=== PATIENT | female | born 1985 | race Caucasian/White ===

== ENCOUNTER 2020-11-04 12:26 | Outpatient (CLI) | payer OTHER, SELFPAY ==
--- NOTE | ~2020-11-04 | MR_ITS ---
EXAMINATION: MR wrist LT w con DATE: 11/04/2020 14:18 INDICATION: Left wrist sprain TECHNIQUE: Magnetic resonance imaging (MRI) of the left wrist was performed without intravenous contr ast. Sequences performed include axial, sagittal and coronal T1-weighted FS FSE and T2-weighted FS FS E and coronal FGRE 3D. COMPARISON: 11/04/2020 FINDINGS: Intrinsic ligaments: The scapholunate and lunotriquetral ligaments are normal. Triangular fibrocartilage complex (TFCC): The triangular fibrocartilage including its foveal and styloid attachments are normal. There is howev er extension of contrast into the distal radioulnar joint which was not seen initially with fluorosco py during the joint injection including with radial and ulnar deviation of the wrist. This appears to extend through a small tear involving the dorsal radioulnar ligament. The ulnar collateral ligament, ulnotriquetral ligament and meniscal homologue are normal. The extensor carpi ulnaris tendon sheath is normal. Extensor wrist: Extensor tendons of the wrist are normal. No tenosynovitis. Flexor wrist: The flexor tendons of the wrist are normal. No abnormality in the carpal tunnel with normal median n erve. Guyon's canal: Guyon's canal including the ulnar nerve and artery are normal. Bones/other: There is a healing fracture at the right scaphoid waist with subtle lucency evident extending across the bone during fluoroscopy and with minimal increased signal of less than fluid intensity and with n o contrast enhancement extending along the fracture plane. There is approximately 1 mm step-off along the midcarpal joint articular surface. Otherwise normal marrow signal. No evident sclerosis at the p roximal pole on fluoroscopy or increased fluid signal to suggest osteonecrosis. Joint spaces are norm al sites in the intra-articular extension of the scaphoid waist fracture.. No focal cartilage defects appreciated. IMPRESSION: 1. Healing essentially nondisplaced scaphoid waist fracture with 1 mm step-off at the articular surfa ce of the midcarpal joint. 2. Small tear of the dorsal radioulnar ligament allowing delayed extension of contrast from the wrist joint into the distal radioulnar joint. Reviewed, dictated and finalized at location A. IMPRESSION: 1. Healing essentially nondisplaced scaphoid waist fracture with 1 mm step-off at the articular surface of the midcarpal joint. 2. Small tear of the dorsal radioulnar ligament allowing delayed extension of c ontrast from the wrist joint into the distal radioulnar joint.
--- NOTE | ~2020-11-04 | XR_ITS ---
EXAMINATION: XR fl inj wrist LT for MR/CT DATE: 11/04/2020 13:36 INDICATION: Left wrist sprain TECHNIQUE: A time-out was performed to verify the patient's name, date of , and procedure to b e performed. The procedure including the risks, benefits, and alternatives was discussed with the pat ient. Risks discussed included bleeding and infection. The patient understood the risks and agreed to proceed. The skin overlying the radioscaphoid articulation of the left wrist joint was prepped and draped in usual sterile fashion. Anesthetic was administered with 1% lidocaine subcutaneously. A 25 G needle was advanced under fluoroscopic guidance into the joint. Injection of 1 mL of Omnipaque 24 0 confirmed intra-articular position of the needle. Subsequently, injectate consisting of 3 mL of 2: 1:1 mixture of sterile saline:Omnipaque 240:1% lidocaine mixed 200:1 with 529 mg/mL Multihance gadoli nium contrast was injected with intermittent fluoroscopic observation confirming intra-articular admi nistration. The needle was removed and the entry site was cleaned and dressed. There were no immedia te complications. Fluoroscopy exposure time was 0.3 minutes. The total number of images was 73. FINDINGS: Real-time fluoroscopy demonstrates a linear lucency extending across the scaphoid waist suspicious fo r fracture. No evident sclerosis of the proximal pole of the scaphoid to suggest avascular necrosis. Subsequent images demonstrate the needle in the left wrist joint with progressive contrast opacificat ion of the joint space. No evident extension of contrast into either the midcarpal joint or distal ra dioulnar joint with smooth distal margin to the triangular fibrocartilage complex. IMPRESSION: 1. Accessible left wrist joint injection of a dilute contrast mixture for subsequent MRI arthrogram w [facility] will be dictated separately. 2. Likely nondisplaced fracture of the left scaphoid waist. Reviewed, dictated and finalized at location A. IMPRESSION: 1. Accessible left wrist joint injection of a dilute contrast mixture for subse quent MRI arthrogram which will be dictated separately. 2. Likely nondisplaced fracture of the left scaphoid waist.
== END 2020-11-04 12:27 ==
PROVIDERS: PCP Family Medicine
DX: S83.502D Sprain of unspecified cruciate ligament of left knee, subsequent encounter (principal); X58.XXXD Exposure to other specified factors, subsequent encounter
CPT/HCPCS: 20605; 73222; 77002; A9577; Q9966

== ENCOUNTER 2021-04-11 15:19 | Emergency (ER) | payer OTHER, SELFPAY ==
--- NOTE | ~2021-04-11 | XR_ITS ---
EXAMINATION: XR chest 2V DATE: 04/11/2021 15:57 INDICATION: Cough and shortness of breath TECHNIQUE: PA and lateral views of the chest were obtained. COMPARISON: None FINDINGS: The lungs are clear with no focal airspace opacities, pulmonary edema, pleural effusion or pneumothor ax. The cardiomediastinal silhouette is normal. Mild thoracic levocurvature with mild to moderate tho racic spondylosis. IMPRESSION: 1. No acute cardiopulmonary disease. Reviewed, dictated and finalized at location B. TECHNOLOGIST
[2021-04-11 15:28] VITALS: BP 126/80; PULSE 112; RESP 16; TEMP 36.9; O2SAT 99
--- NOTE | 2021-04-11 15:51 | ED.URI ---
HPI - URI/Sore Throat General Chief Complaint: Upper Respiratory Infection Stated Complaint: sob dry cough no appetite Time Seen by Provider: 04/11/21 15:45 Source: patient and RN notes reviewed Mode of arrival: ambulatory Limitations: no limitations History of Present Illness HPI Narrative: Patient presents today complaining of a 3-week history of dry cough, shortness of breath, decreased appetite. She reports her sputum is now green/brown, and she now has a sore throat due to cough. She was seen by her PCP a few days ago and given a prescription for prednisone and albuterol. She has been taking these without relief. Prior to this she had been taking DayQuil and Mucinex without relief. She called her PCPs office and was told to come to urgent care, as they were concerned about pneumonia, but could not order her an x-ray. MD elicited complaint: cough Related Data Home Medications Medication Instructions Recorded Confirmed albuterol sulfate 90 mcg INHALATION PRN PRN 04/11/21 04/11/21 clonazepam 1 mg PO DAILY 04/11/21 04/11/21 prednisone 40 mg PO DAILY 04/11/21 04/11/21 vilazodone [Viibryd] 40 mg PO DAILY 04/11/21 04/11/21 Allergies Allergy/AdvReac Type Severity Reaction Status Date / Time Penicillins Allergy Mild Unknown Verified 04/11/21 15:33 amoxicillin Allergy Unknown Unknown Verified 04/11/21 15:33 Review of Systems Review of Systems: CONSTITUTIONAL: Denies body aches, fever, chills, or sweats. EYES: Denies visual changes, redness, or discharge. ENT: Denies rhinorrhea, congestion, or otalgia.+ Throat CARDIOVASCULAR: Denies chest pain, palpitations, or edema. RESPIRATORY: + Cough, shortness of breath GASTROINTESTINAL: Denies abdominal pain, nausea, vomiting, or diarrhea.+ Decreased appetite GENITOURINARY: Denies dysuria or hematuria. SKIN: Denies rash, itching, or wounds. MUSCULOSKELETAL: Denies back pain, joint pain, or myalgia. NEUROLOGIC: Denies headache, numbness, tingling, or weakness. PSYCH: Denies depression or anxiety. [facility] Social History Social History Smoking status: Light tobacco smoker Alcohol intake: current Comments At time of signature, I have reviewed and agree with nursing past medical, surgical, social and family history unless otherwise noted. Please see nursing chart for further information. There is no relevant family history pertinent to the presenting complaint Exam Narrative: GENERAL: Mildly ill-appearing, well-nourished, and in no acute distress. HEAD: Normocephalic, atraumatic. EYES: EOMI. No redness or drainage. Conjunctivae normal. ENT: Mucous membranes pink and moist. Nares clear. No rhinorrhea. TMs normal bilaterally. Throat normal. Uvula midline. NECK: Normal AROM. Supple. No lymphadenopathy. CHEST: No respiratory distress. Clear to auscultation. HEART: Regular rate and rhythm. No murmur appreciated. Normal peripheral pulses. EXTREMITIES: Normal range of motion. No edema. SKIN: Warm, dry, no rash. Capillary refill normal. Normal skin turgor. NEURO: No focal deficits. Alert and oriented x3. Gait steady. PSYCH: Normal affect. No signs of depression or anxiety. Course Course Level of Care: Express Care Visit Vital Signs Vital signs: Vital Signs Temperature 98.4 F 04/11/21 15:28 Pulse Rate 112 H 04/11/21 15:28 Respiratory Rate 16 04/11/21 15:28 Blood Pressure 126/80 04/11/21 15:28 Pulse Oximetry 99 04/11/21 15:28 Temperature 98.4 F 04/11/21 15:28 Pulse Rate 112 H 04/11/21 15:28 Respiratory Rate 16 04/11/21 15:28 Blood Pressure 126/80 04/11/21 15:28 Pulse Oximetry 99 04/11/21 15:28 Reviewed. Pt has been instructed to follow up with her PCP regarding her elevated blood pressure today. MDM - URI/Sore Throat Differential Diagnosis Differential diagnosis: Likely upper respiratory infection, sinusitis, viral infection, bronchitis and other (Pneumonia) Imaging Data
== END 2021-04-11 16:28 | disposition home or self-care (01) ==
PROVIDERS: Emergency Provider Nurse Practitioner; PCP Family Medicine
DX: J40 Bronchitis, not specified as acute or chronic (principal); J06.9 Acute upper respiratory infection, unspecified; F17.200 Nicotine dependence, unspecified, uncomplicated; F41.9 Anxiety disorder, unspecified; F43.10 Post-traumatic stress disorder, unspecified
CPT/HCPCS: 71046; 99213; G0463